=== PATIENT | female | born 2000 | race Caucasian/White ===

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

== ENCOUNTER 2022-01-27 01:10 | Emergency (ER) | payer BC ==
[2022-01-27 02:27] LABS: CORONAVIRUS COVID-19 NAA NEGATIVE (NEGATIVE)
== END 2022-01-27 03:09 | disposition home or self-care (01) ==
LOC: JD.ED 01:10
DX: J06.9 Acute upper respiratory infection, unspecified (principal); Z86.16 Personal history of COVID-19; Z20.822 Contact with and (suspected) exposure to COVID-19
CPT/HCPCS: 0241U; 71046; 99283

== ENCOUNTER 2024-05-08 12:46 | Emergency (ER) | payer BC, OTHER ==
[2024-05-08] MEDS: Acetaminophen 325 MG Tab PO ONE (14:16)
== END 2024-05-08 15:45 | disposition home or self-care (01) ==
LOC: JD.ED 12:46
DX: S80.02XA Contusion of left knee, initial encounter (principal); J45.909 Unspecified asthma, uncomplicated; Z79.899 Other long term (current) drug therapy; Z86.16 Personal history of COVID-19; V49.40XA Driver injured in collision with unspecified motor vehicles in traffic accident, initial encounter
CPT/HCPCS: 73552; 73562; 73590; 99283; A9270